=== PATIENT | female | born 1990 | race Hispanic/Latino ===

== ENCOUNTER 2024-06-08 20:42 | Emergency (ER) | payer BC ==
[2024-06-09] MEDS ORDERED: Acetaminophen 500 MG TAB ONE (00:12)
[2024-06-09] MEDS ORDERED: Lidocaine 4% Patch ONE (00:13)
[2024-06-09] MEDS ORDERED: Methocarbamol 500 MG TAB ONE (00:13)
== END 2024-06-09 00:25 | disposition home or self-care (01) ==
LOC: CSHERS 20:42
DX: S10.93XA Contusion of unspecified part of neck, initial encounter (principal); V43.62XA Car passenger injured in collision with other type car in traffic accident, initial encounter
CPT/HCPCS: 99283